=== PATIENT | male | born 1970 | race Caucasian/White ===

== ENCOUNTER → 2018-05-26 | Outpatient (CLI) | payer OTHER | END | disposition home or self-care (01) | LOC: LAB EV 13:16 → LAB SHORT 13:16 | DX: N39.0 Urinary tract infection, site not specified (principal) | CPT/HCPCS: 87086 ==

== ENCOUNTER 2018-12-16 17:56 | Inpatient (IN) | payer OTHER ==
[~2018-12-16] VITALS: Ht 182.9 cm; Wt 182.5 kg
[2018-12-16 18:30] LABS: Calcium, Ionized (POC) 0.91 mmol/L (1.10-1.46); Chloride (POC) 103 mmol/L (98-108); Creatinine (POC) 0.9 mg/dL (0.8-1.3); Glucose (ISTAT POC) 272 mg/dL (70-99); Hemoglobin (POC) 16.7 g/dL (13.5-17.5); Potassium (POC) 3.9 mmol/L (3.5-5.5); Sodium (POC) 136 mmol/L (135-148); Total CO2 (POC) 25 mmol/L (21-32)
[2018-12-16 18:36] LABS: BASOPHILS ABSOLUTE AUTO 0.04 K/mm3 (0.00-0.23); BASOPHILS PERCENT AUTO 0 % (0-2); EOSINOPHILS ABSOLUTE AUTO 0.35 K/mm3 (0.00-0.68); EOSINOPHILS PERCENT AUTO 2 % (0-6); Hematocrit 50.5 % (37.0-53.0); Hemoglobin 16.1 g/dL (13.5-17.5); IMMATURE GRAN ABSOLUTE AUTO 0.05 K/mm3 (0.00-0.10); IMMATURE GRAN PERCENT AUTO 0 % (0-1); LYMPHOCYTES ABSOLUTE AUTO 1.49 K/mm3 (0.84-5.20); LYMPHOCYTES PERCENT AUTO 10 % (21-46); MONOCYTES ABSOLUTE AUTO 0.84 K/mm3 (0.16-1.47); MONOCYTES PERCENT AUTO 5 % (4-13); Mean Corpuscular HGB 28.2 pg (26.0-34.0); Mean Corpuscular HGB Conc 31.9 g/dL (31.5-36.5); Mean Corpuscular Volume 89 fL (80-100); Mean Platelet Volume 9.9 fL (9.1-12.4); NEUTROPHILS ABSOLUTE AUTO 12.84 K/mm3 (1.96-9.15); NEUTROPHILS PERCENT AUTO 82 % (41-73); Platelet Count 315 K/mm3 (150-400); RDW Coefficient Variation 14.1 % (11.7-14.2); RDW Standard Deviation 45.5 fL (35.1-46.3); White Blood Cell Count 15.61 K/mm3 (4.00-11.30)
[2018-12-16 18:48] LABS: PCO2 Arterial 45.7 mmHg (35-45); PO2 Arterial 351 mmHg (80-100); pH Blood Arterial 7.41 (7.35-7.45)
[2018-12-16 18:53] LABS: Source, Urine Clean Catch
[2018-12-16 18:56] LABS: Bilirubin, Urine Neg (Neg); Blood, Urine 4+ (Neg); Glucose Qualitative, Urine 4+ (Neg); Ketones, Urine 2+ (Neg); Leukocyte Esterase, Urine Neg (Neg); Nitrite, Urine Neg (Neg); Protein, Urine 4+ (Neg); Urobilinogen, Urine NORM (Normal)
[2018-12-16 19:01] LABS: Appearance, Urine Clear (Clear); Color, Urine Yellow (P-Yellow)
[2018-12-16 19:03] LABS: Bacteria Mod /hpf; Red Blood Cells, Urine 0-2 /hpf (0-2); Squamous Epithelial Cells Rare /hpf (Few)
[2018-12-16 19:06] LABS: Alanine Aminotransfer (ALT/SGP 38 U/L (12-78); Albumin, Blood 3.9 g/dL (3.4-5.0); Albumin/Globulin Ratio 0.8 (0.8-1.8); Alk Phos 109 U/L (50-136); Anion Gap 7 mmol/L (6-16); Aspartate Aminotrans (AST/SGOT 30 U/L (12-37); Bilirubin, Total 0.5 mg/dL (0.1-1.0); Blood Urea Nitrogen 18 mg/dL (8-24); CO2, Blood 29 mmol/L (21-32); Calcium, Blood 8.9 mg/dL (8.5-10.1); Chloride, Blood 99 mmol/L (98-108); Creatinine, Blood 0.78 mg/dL (0.60-1.20); Ethanol (Alcohol), Blood, Med <3 mg/dL; Glomerular Filtration Rate >60 (60-); Glucose, Blood 265 mg/dL (70-99); Potassium, Blood 3.6 mmol/L (3.5-5.5); Salicylate <1.7 mg/dL (2.8-20.0); Sodium, Blood 135 mmol/L (136-145); Total Protein, Blood 8.9 g/dL (6.4-8.2); Troponin I 0.035 ng/mL (0.000-0.040)
[2018-12-16 19:09] LABS: U Amphetamine Screen Not Detected; U Barbituate Screen Not Detected; U Benzodiazapine Screen Not Detected; U Buprenorphine Screen Not Detected; U Cannabinoids Screen Not Detected; U Cocaine Screen Not Detected; U Methadone Screen Not Detected; U Methamphetamine Screen Not Detected; U Opiates Screen Not Detected; U Oxycodone Screen Not Detected; U Phencyclidine Screen Not Detected; U Propoxyphene Screen Not Detected
[2018-12-16 19:20] LABS: Acetaminophen, Random <2.0 ug/mL (10.0-30.0)
[2018-12-16 20:07] LABS: International Normalized Ratio 1.03; Prothrombin Time Results 10.9 Sec (9.7-11.5)
--- NOTE | 2018-12-16 22:30 | NUR ---
ADMIT PT ARRIVES VIA ER WITH 2 RN'S AND RT, PT IS INTUBATED AND SEDATED. CURRENT VENT SETTINGS OF AC 16/450/30%/5 AND SEDATION VIA PROPOFOL AT 40MCG/KG/MIN AND VERSED AT 4MG/HR. LEFT PUPIL AT 3MM AND RT PUPIL AT 6MM NEITHER ARE REACTIVE. NO PURPOSEFUL MOVEMENT NOTED. NITROPRUSSINDE AT 2MCG/KG/MIN W/ GOAL TO MAINTAIN SBP 160-180. PLAN TO INITIATE ADMIT ORDERS.
--- NOTE | 2018-12-16 23:15 | NUR ---
DR FABIOLA SALINAS UPDATED ON CONSULT AND PT FAMILY WISHES TO DISCUSS WITHDRAWAL OF CARE IN AM.
--- NOTE | 2018-12-17 06:31 | NUR ---
SHIFT SUMMARY SEE PREVIOUS NOTES FOR SHIFT. PT IS INTUBATED W/ SETTINGS OF AC16/500/45%/5 AND ALL SEDATION OFF SINCE 0515 AND NITROPRUSSIDE OFF SINCE RIGHT AFTER MIDNIGHT. PT REMAINS UNRESPONSIVE, DOES NOT RESPOND TO VOICE OR PAIN STIM, PUPILS UNEQUAL WITH LEFT LARGER THAN RIGHT AT 6/4CM, NO PURPOSEFUL MOVEMENT, NO GAG, COUGH OR CORNEAL REFLEX. MALACHI CHO HAS STAYED IN ROOM OVERNIGHT WITH HER SISTER. FAMILY AWARE OF POOR PROGNOSIS AND STATE "I KNOW WE ARE SAYING GOODBYE TONIGHT." BP HAS SLOWLY DROPPED T/O SHIFT, ECG WAS INITIALLY SBT BUT IS NOT SR IN THE 60-70'S AND O2 SATS LOW 90'S.
--- NOTE | 2018-12-17 07:29 | NUR ---
START OF SHIFT NOTE: RECIEVED REPORT FROM MIGUEL ANGEL SHORT RN, ASSUMED CARE, PATIENT IS ON MECHANICAL VENTILATION, SETINGS ARE: A/C 16//550/FiO2 40 %, PATIENT IS NOT SEDATED, NO RESTRAINTS AT THIS TIME, PATIENT DOES NOT FOLLOW COMMANDS, PUPILS ARE NON-REACTIVE, PATIENT UNRESPONSIVE, NSR, VSS, AFEBRILE, NO VISIBLE S/S OF PAIN, PIV'S X 4, BOWEL TONES HYPOTENSIVE, LEHMAN CATHETER IN PLACE, DRAINING CLEAR YELLOW URINE, BILATERAL LOWER EXTREMITIES APPEAR TO SHOW SIGNS OF VENOUS STASIS, FAMILY AND GIRLFRIEND AT BEDSIDE, CALL LIGHT IN REACH, WILL CONTINUE TO MONITOR.
--- NOTE | 2018-12-17 08:23 | NUR ---
DR. OROURKE IN TO SEE PATIENT, SPOKE WITH FAMILY ABOUT OPTIONS AND NEXT STEPS, PALLIATIVE CARE CALLED, THIS RN SPOKE WITH JENNY AND SHE WILL BE HERE TO SPEAK WITH FAMILY AND PROVIDE INFORMATION FOR NEXT STEPS.
--- NOTE | 2018-12-17 09:13 | NUR ---
JENNY, PALLIATIVE CARE, IN TO SPEAK WITH FAMILY, FAMILY WILL MEET AND DECIDE ON NEXT STEPS, FAMILY IS THINKING ABOUT POSSIBLE ORGAN DONATION. DONATION TEAM ENROUTE FROM MIGUEL ANGEL DOS SANTOS RN, DONATION TEAM CALLED AND UPDATE PROVIDED ON PATIENT CONDITION.
--- NOTE | 2018-12-17 09:43 | NUR ---
TA, SPIRITUAL CARE, IN TO SPEAK WITH FAMILY, THIS RN PROVIDED UPDATE TO TA ON POSSIBLE ORGAN DONATION/TRANSPLANT TEAM ENROUTE TO HOSPITAL, CALL LIGHT IN REACH, WILL CONTINUE TO MONITOR.
--- NOTE | 2018-12-17 10:03 | NUR ---
CALLED DIETARY AND THEY WILL SEND COMFORT CART WITH LUNCH TRAYS, NO ORDER NEEDED.
--- NOTE | 2018-12-17 10:46 | NUR ---
FAMILY EMPLOYMENT ADJUDICATOR DIMA MOMIN, , CALLED, AND PERMISSION WAS GIVEN BY THE FAMILY TO UPDATE HIM ON PATIENT CONDITION.
--- NOTE | 2018-12-17 11:39 | NUR ---
TRANSPLANT TEAM FROM CECILIA DOS SANTOS RN, AND TONYA MICHELLE, IN ICU, CHECKING DOCUMENTATION FOR POSSIBLE ORGAN DONATION.
--- NOTE | 2018-12-17 12:13 | NUR ---
TRANSPOLANT TEAM SPOKE WITH FAMILY, FAMILY WANTS TO WITHDRAW CARE AND MAKE PATIENT COMFORT CARE, PER TA MURRAY, SPIRITUAL CARE, DR. OROURKE NOTIFIED, WILL PLACE COMFORT CARE ORDERS,
--- NOTE | 2018-12-17 12:29 | NUR ---
Met wit family at bedside. Listened to stories of Janelle's kindness and devotion. Friends are coming and going. Family is aware that Janelle "would not want to live like this." They are preparing themselves to withdraw life support and allow a natural passing. I facilitated family prayer for peace and gratitude at bedside. Family asked great questions regarding the process of letting go and they responded well to gentle education and staff counselor. Advised RN of family wishes. Family saying their goodbyes and will inform staff when they are ready to let Janelle go. They have asked for prayer before withdrawl. UNtil then, I will remain available.
--- NOTE | 2018-12-17 14:55 | NUR ---
PATIENT EXTUBATED AT 14:51 by RT YOLY, THIS RN AT BEDSIDE, ALL INFUSIONS REMOVED, PATIENT TAKEN OFF MONITOR, FAMILY AT BEDSIDE, WILL CONTINUE TO MONITOR.
--- NOTE | 2018-12-17 15:04 | NUR ---
PATIENTS FAMILY REQUESTED SPIRITUAL SUPPORT AND TA MURRAY WAS CALLED AND IN WITH FAMILY AT BEDSIDE.
--- NOTE | 2018-12-17 16:38 | NUR ---
PATIENT AT 1450 IMMEDIATELY AFTER EXTUBATION, FAMILY AT BEDSIDE, ASKED TO HAVE ALTERNATIVES IN [place] SUPPORT GROUP MANAGER THE BODY, DONOR LINE NOTIFIED, PATIENT NO A CANDIDAT FOR DONATION D/T POSSIBLE DZ STATUS, STRAW HAT BRUSHER NOTIFIED D/T PATIENT NOT HAVING BEEN HERE 24 HOURS, BODY RELEASED TO HOME, HOME NOTIFIED, BODY WAS PICKED UP AT 1634.
== END 2018-12-17 16:26 | DRG 64 ==
LOC: ER 17:56 → ICUE 21:17 → ICUW 21:17 → ICUE 22:25
PROVIDERS: Emergency Medicine; ADMIT Hospitalist
PROC: 0BH17EZ Insertion of Endotracheal Airway into Trachea, Via Natural or Artificial Opening (ICD-10-PCS; principal; 2018-12-16)
PROC: 5A1935Z Respiratory Ventilation, Less than 24 Consecutive Hours (ICD-10-PCS; 2018-12-16)
DX: I61.1 Nontraumatic intracerebral hemorrhage in hemisphere, cortical (principal); A41.9 Sepsis, unspecified organism; J69.0 Pneumonitis due to inhalation of food and vomit; R65.20 Severe sepsis without septic shock; E72.4 Disorders of ornithine metabolism; E87.1 Hypo-osmolality and hyponatremia; R40.20 Unspecified coma; Z51.5 Encounter for palliative care; I16.0 Hypertensive urgency; R73.9 Hyperglycemia, unspecified; E03.9 Hypothyroidism, unspecified; G47.30 Sleep apnea, unspecified; Z87.891 Personal history of nicotine dependence
CPT/HCPCS: 31500; 31720; 36415; 36600; 51702; 70450; 71045; 71250; 80047; 80053; 81001; 82140; 82803; 83605; 83880; 84443; 84484; 85014; 85025; 85610; 87086; 93005; 93010; 94002; 94003; 94770; 96365-59; 96366-59; 96368; 96375-59; 96376-59; 99291-25; 99292; G0480; J0330; J1815; J2150; J2250; J7060